=== PATIENT | male | born 2000 | race Caucasian/White ===

== ENCOUNTER 2025-03-01 00:21 | Emergency (ER) | payer MEDICAID, SELFPAY ==
[2025-03-01 00:22] VITALS: BP 133/80; PULSE 110; RESP 16; TEMP 36.7; O2SAT 98; BMI 25.4
[2025-03-01 00:25] VITALS: BP 133/80; PULSE 115; RESP 18; TEMP 36.7; O2SAT 99
[2025-03-01] MEDS: 0.9% Normal Saline (1000mL) 1,000 ML 999 ML IV (01:04)
[2025-03-01 01:10] LABS: Hematocrit 40.3 % (40-54); Hemoglobin 14.0 g/dL (13.0-16.5); Immature Granulocytes Count 0.030 X10^3/uL (0.0-0.0); Mean Corp Hgb Conc 34.7 g/dL (32-36); Mean Corpuscular Volume 88.4 fL (80-94); Mean Platelet Vol. 11.3 fl (6.2-12.0); NRBC Flagged by Analyzer 0 % (0-5); Platelet Count 312 K/mm3 (150-450); RBC Distribution Width CV 12.6 % (11.6-14.6); RBC Distribution Width SD 41.1 fl (35.1-43.9); Red Blood Count 4.56 M/mm3 (4.6-6.2); White Blood Count 10.0 K/mm3 (4.4-11.0)
[2025-03-01 01:25] VITALS: BP 114/81; PULSE 95; RESP 16; TEMP 36.9; O2SAT 98
[2025-03-01 01:37] LABS: Anion Gap 12 (5-15); BUN 11 mg/dL (4-19); BUN/Creat Ratio 11.2 RATIO (10-20); Calcium,Total 8.8 mg/dL (7.6-11.0); Carbon Dioxide 21.2 mmol/L (21.0-32.0); Chloride 106 mmol/L (98-108); Estimated Creatinine Clearance 120.12 ml/min (50-250); Glucose 110 mg/dL (70-99); Magnesium 2.2 mg/dL (1.5-2.2); Potassium 4.2 mmol/L (3.3-5.1)
[2025-03-01 02:09] VITALS: BP 119/72; PULSE 85; RESP 16; O2SAT 99
[2025-03-01 02:58] LABS: Barbiturate Urine NEGATIVE (< 200 ng/mL); Benzodiazepine Urine NEGATIVE (< 200 ng/mL); PCP Urine NEGATIVE (< 25 ng/mL); THC Urine NEGATIVE (< 50 ng/mL)
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
[2025-03-01 03:14] VITALS: BP 119/72; PULSE 85; RESP 16; TEMP 36.9; O2SAT 99
== END 2025-03-01 03:14 | disposition home or self-care (01) ==
PROVIDERS: Emergency Provider Emergency Medicine; Visit Provider Emergency Medicine
DX: S61.502A Unspecified open wound of left wrist, initial encounter (principal); F41.9 Anxiety disorder, unspecified; F17.210 Nicotine dependence, cigarettes, uncomplicated; R00.2 Palpitations; F17.290 Nicotine dependence, other tobacco product, uncomplicated; W26.8XXA Contact with other sharp object(s), not elsewhere classified, initial encounter
CPT/HCPCS: 80048; 80307; 83735; 84443; 85025; 96360; 99283; A4216